=== PATIENT | female | born 1975 ===

== ENCOUNTER 2016-12-18 09:16 | Emergency (ER) | payer OTHER ==
[2016-12-18 09:48] VITALS: BP 146/88
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
== END 2016-12-18 10:29 ==
LOC: UCEAST 09:16
DX: R10.9 Unspecified abdominal pain (principal); R00.0 Tachycardia, unspecified
CPT/HCPCS: 93005; 99202; G0463

== ENCOUNTER 2016-12-18 11:14 | Emergency (ER) | payer OTHER ==
[2016-12-18] MEDS ORDERED: Adenosine* 3 MG/ML VIAL ONE ×2 (11:35→11:53)
[2016-12-18] MEDS ORDERED: NS 0.9% 1000 ML* 1,000 ML IV ONE ×2 (11:53→18:12)
[2016-12-18] MEDS ORDERED: Famotidine IV* 10 MG/ML 2 ML (20 mg) IV ONE (11:53)
[2016-12-18] MEDS ORDERED: Ondansetron INJ* 2 MG/ML VIAL IV ONE (11:53)
[2016-12-18] MEDS ORDERED: Acetaminophen TAB* 325 MG PO ONE (12:06)
[2016-12-18 12:24] LABS: ALT 38 U/L (7-52); AST 40 U/L (13-39); Alkaline Phosphatase 100 U/L (34-104); Anion Gap 12 mmol/L (2-11); BUN/Creatinine Ratio 15.9 (8-20); Blood Urea Nitrogen 10 mg/dL (6-24); C Reactive Protein 215.25 mg/L (< 5.00); CO2 Carbon Dioxide 21 mmol/L (22-32); Calcium 9.3 mg/dL (8.6-10.3); Chloride 96 mmol/L (101-111); EGFR African American 134.6 (>60); EGFR Non-African American 104.7 (>60); Globulin 3.5 g/dL (2-4); Glucose 121 mg/dL (70-100); Lipase < 10 U/L (11.0-82.0); Potassium 3.3 mmol/L (3.5-5.0); Sodium 129 mmol/L (133-145); Total Protein 7.5 g/dL (6.4-8.9)
[2016-12-18 12:26] LABS: Troponin I 0.01 ng/mL (<0.04)
[2016-12-18 12:49] LABS: Hematocrit 43 % (35-47); Hemoglobin 14.7 g/dl (12.0-16.0); Mean Corpuscular HGB Conc 34 g/dl (31-36); Mean Corpuscular Hemoglobin 41 pg (27-31); Mean Corpuscular Volume 120 fL (80-97); Mean Platelet Volume 8 um3 (7.4-10.4); Red Blood Count 3.56 10^6/ul (4.0-5.4); Red Cell Distribution Width 15 % (10.5-15); White Blood Count 15.4 10^3/ul (3.5-10.8)
[2016-12-18 12:51] LABS: Add Diff/Slide Review? Slide Review Added
--- NOTE | 2016-12-18 13:20 | RAD ---
INDICATION: Tachycardia, epigastric pain, fever. COMPARISON: June 15, 2005 TECHNIQUE: Dual energy PA and routine lateral views of the chest were obtained. REPORT: Mild elevation of the RIGHT hemidiaphragm less prominent than on the prior exam. Clear lungs and pleural spaces. Negative for pneumothorax. Mild cardiomegaly. Mild RIGHT convex curve of the thoracic spine. Diffusely prominent soft tissue contours corresponding with obese body habitus. IMPRESSION: No evidence for acute intrathoracic disease.
[2016-12-18 13:26] LABS: Macrocytosis 2+; Polychromasia 1+
[2016-12-18] MEDS ORDERED: Iohexol 300* (CONTRAST) 10 ML SDV IV ONE (14:10)
--- NOTE | 2016-12-18 15:38 | RAD ---
CLINICAL HISTORY: Abdominal pain COMPARISON: February 06, 2004 TECHNIQUE: Multiple contiguous axial CT scans were obtained of the abdomen and pelvis after the administration of intravenous contrast. Coronal and sagittal multiplanar reformations are submitted for review. Oral contrast was administered. Delayed images were obtained through the abdomen and pelvis. FINDINGS: LUNG BASES: The lung bases are clear. LIVER: The liver is diffusely low in attenuation compared to the spleen. There are no focal hepatic parenchymal masses. The liver measures 24 cm in long axis. BILE DUCTS: There is no intrahepatic or extrahepatic biliary dilatation. GALLBLADDER: There are multiple gallstones. There is extensive pericholecystic inflammatory change PANCREAS: The pancreas is normal, without mass or ductal dilatation. SPLEEN: Normal in size and appearance. UPPER GI TRACT: Evaluation of the gastrointestinal tract is limited by incomplete gastric distention. The upper GI tract is unremarkable. SMALL BOWEL AND MESENTERY: The small bowel is normal in contour, course, and caliber. There is no obstruction or dilatation. COLON: The colon is normal in contour, course, caliber. There is no pericolonic inflammatory change. There is a tubular, vermiform, hollow viscus that is blind ending, and originates from the cecum, consistent with a normal appendix. There is no periappendiceal inflammatory change. This is best seen on coronal image 63. ADRENALS: Normal bilaterally. KIDNEYS: The kidneys are normal in shape, size, contour, and axis. There is no hydronephrosis or nephrolithiasis. BLADDER: The bladder is smooth in contour. PELVIC ORGANS: The uterus and adnexa are grossly normal for technique. AORTA: The aorta is normal. IVC: Unremarkable LYMPH NODES: There is no lymphadenopathy by size criteria. ABDOMINAL WALL: There is no evidence for abdominal wall hernia. BONES AND SOFT TISSUES: Mild degenerative changes are noted OTHER: None IMPRESSION: 1. CHOLELITHIASIS WITH PERICHOLECYSTIC INFLAMMATORY CHANGE SUGGESTIVE OF ACUTE CHOLECYSTITIS. 2. HEPATOMEGALY WITH FATTY INFILTRATION OF THE LIVER
[2016-12-18] MEDS ORDERED: Iohexol 350* (CONTRAST) 500 ML MDV IV ONE (18:11)
[2016-12-18 18:24] LABS: Urine Bacteria Absent (Absent)
[2016-12-18 18:27] LABS: Urine Bilirubin Negative (Negative); Urine Glucose Negative (Negative); Urine Nitrite Negative (Negative)
--- NOTE | 2016-12-18 19:04 | RAD ---
INDICATION: Tachycardia, elevated d-dimer and retrosternal chest pain COMPARISON: None TECHNIQUE: Axial source images were acquired following the administration of 86 mL Omnipaque [address] angiographic technique. Coronal and sagittal reconstructed images were constructed and reviewed. FINDINGS: There is minimal contrast in the pulmonary arteries with the right mainstem pulmonary artery only measuring a Hounsfield unit of 161. This prevents meaningful evaluation of the lobar and more distal pulmonary arterial segments. There is no central or right or main stem bronchial artery pulmonary embolus. There are no focal infiltrates or effusions. There are no pulmonary parenchymal masses. The heart is normal in size. There is no evidence of pericardial effusion. There is no evidence of aortic aneurysm or dissection. There is no mediastinal, hilar, or axillary lymphadenopathy. Degenerative changes of the thoracic spine includes loss of intervertebral disc height and anterior marginal osteophyte formation. Limited views of the upper abdomen show no abnormalities. IMPRESSION: Poor timing of the contrast bolus prevents reliable evaluation beyond the right and left mainstem pulmonary arteries. There is no central or right or main stem pulmonary embolism. The more distal branches are not adequately evaluated on this CTA.
[2016-12-18] MEDS: NS 0.9% 1000 ML* 2,000 ML IV ONE (19:28)
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
--- NOTE | 2016-12-18 21:01 | RAD ---
HISTORY: Abdominal pain COMPARISONS: Same day CT of the abdomen and pelvis that shows inflammatory change surrounding the gallbladder. TECHNIQUE: Multiple transverse and longitudinal ultrasound images were obtained of the right upper quadrant. FINDINGS: LIVER: The liver is normal in dimensions and echogenicity. Normal hepatic and portal venous blood flow is duplicated with color flow imaging. There is no gross intrahepatic biliary duct dilatation. GALLBLADDER AND EXTRAHEPATIC BILIARY DUCT: There is gallbladder wall thickening measuring up to 6 mm in thickness. There are shadowing echogenic stones in the dependent portion of the gallbladder. There is trace pericholecystic fluid. The common bile duct measures a maximum diameter of 5 mm. PANCREAS: Overlying bowel gas prevents evaluation of the pancreas. RIGHT KIDNEY: The right kidney is normal in size, morphology and echogenicity. IMPRESSION: IN THE CORRECT CLINICAL SETTING THE SONOGRAPHIC FINDINGS COULD BE CONSISTENT WITH ACUTE CHOLECYSTITIS AND CHOLELITHIASIS. IF CLINICALLY WARRANTED PHYSIOLOGIC CHARACTERIZATION OF THE GALLBLADDER COULD BE MADE WITH A HIDA SCAN.
[2016-12-18] MEDS ORDERED: Ciprofloxacin TAB* 500 MG PO ONE (22:19)
[2016-12-18] MEDS ORDERED: metroNIDAZOLE TAB* 250 MG PO ONE (22:20)
[2016-12-18] MEDS ORDERED: oxyCODONE/Acetamin 5/325 MG* TAB PO ONE (22:21)
[2016-12-18 22:30] VITALS: BP 117/96
--- NOTE | 2016-12-19 07:44 | ED ---
Mariela Thomas Rebecca, scribed for Ry Kenney MD on 12/18/16 at 2116 . Progress - Progress Note Progress Note: Pt was signed out from Dr. Escobedo as shift change, pending disposition, awaiting abdomen US. - Results/Orders Results/Orders: Abdomen US, as read by radiologist, reveals: IN THE CORRECT CLINICAL SETTING THE SONOGRAPHIC FINDINGS COULD BE CONSISTENT WITH ACUTE CHOLECYSTITIS AND CHOLELITHIASIS. IF CLINICALLY WARRANTED PHYSIOLOGIC CHARACTERIZATION OF THE GALLBLADDER COULD BE MADE WITH A HIDA SCAN. ED physician reviewed radiology report and agrees. Re-Evaluation - Re-Evaluation First Eval Re-Evaluation Time: 21:25 Comment: Pt expressed that she does not want to be transferred and will sign out AMA. Second Eval Re-Evaluation Time: 22:15 Comment: Discussed the risks of leaving AMA including sepsis and and she understand ad continues to want to sign out AMA. Explained that she cannot be admitted here because we do not have GI coverage tonight or tomorrow. She stated she will follow up at [facility] in the morning. Course/Dx - Course Course Of Treatment: Pt was signed out from Dr. Escobedo, pending dispo, awaiting abdomen US. Abdomen US reveals acute cholecystitis and cholelithiasis. Discusse care of pt with Dr. Morataya who agrees that if thehospitalist does ont want to admit the pt, she should be transferred. Discussed the risks of leaving AMA including sepsis and and she understand ad continues to want to sign out AMA. Explained that she cannot be admitted here because we do not have GI coverage tonight or tomorrow. She stated she will follow up at [facility] in the morning. It was stressed to her that this needs to be evaluated immediately and that she should stay NPO in the morning. Elevated BP noted and advised f/u. - Diagnoses Provider Diagnoses: Acute cholecystitis, Left against medical advice - Provider Notifications Discussed Care Of Patient With: Emery Morataya Time Discussed With Above Provider: 21:07 Instructed by Provider To: Other - Agrees that if the hospitalist will not admit the pt, that she must be transferred. The documentation as recorded by the Mariela garcia Rebecca accurately reflects the service I personally performed and the decisions made by me, Ry Kenney MD.
== END 2016-12-18 22:58 | disposition short-term general hospital (02) ==
LOC: ED 11:14
DX: K81.0 Acute cholecystitis (principal); Z53.21 Procedure and treatment not carried out due to patient leaving prior to being seen by health care provider
CPT/HCPCS: 36415; 71020; 71275; 74177; 76705; 80053; 81003; 81015; 83605; 83690; 84484; 84702; 85025; 85379; 86140; 87040; 93005; 96374; 96375; 99284; A9270-GY; J0153; J2405; J2543; Q9967